=== PATIENT | male | born 1965 | race Caucasian/White ===

== ENCOUNTER 2018-05-29 12:46 | Emergency (ER) | payer OTHER ==
--- NOTE | 2018-05-29 13:29 | ED ---
Back Pain - HPI Summary HPI Summary: This pt is a 52 y/o male presenting to [facility] c/o back pain radiating down right leg for the past 2 weeks. Pt reports he has hx of sciatica and usually resolves after going to chiropractor and physical therapy. He states that around 05/10/18 pt was changing the brakes from his car when he "tweaked" his back. Pt has been to the chiropractor x3 and is doing physical therapy without relief. He was given medications including flexeril (last dose was 2 week ago) and hydrocodone without relief. Pt is currently on duloxetine now without much relief. Pt has difficulty ambulating and moving secondary to pain and has also missed work. Pt called Dr. Brownlee, from the pain clinic, and was advised to come to the ED for possible MRI. - History of Current Complaint Chief Complaint: EDBackInjuryPain Stated Complaint: BACK PAIN Time Seen by Provider: 05/29/18 13:04 Hx Obtained From: Patient Onset/Duration: Lasting Weeks - 2, Still Present Onset/Duration: Started Weeks Ago - 2, Still Present Timing: Lasting Weeks - 2 Back Pain Location: Is Discrete @ - low back, Radiates To - right foot Severity Currently: Severe Pain Intensity: 10 Pain Scale Used: 0-10 Numeric Aggravating Symptom(s): Movement Alleviating Symptom(s): Rest Associated Signs And Symptoms: Negative: Fever, Weakness, Numbness, Tingling, Abdominal Pain, Bladder Incontinence, Bowel Incontinence - Allergies/Home Medications Allergies/Adverse Reactions: Allergies Allergy/AdvReac Type Severity Reaction Status Date / Time No Known Allergies Allergy Verified 05/29/18 13:03 Home Medications: Home Medications Aspirin EC TAB* [Ecotrin EC Low Dose 81 MG*] 81 mg PO DAILY 05/29/18 [History Confirmed 05/29/18] Atorvastatin* [Lipitor*] 20 mg PO DAILY 05/29/18 [History Confirmed 05/29/18] Dulaglutide (NF) [Trulicity (NF)] 1.5 mg SUBCUT WEEKLY 05/29/18 [History Confirmed 05/29/18] Insulin GLARGINE(*) [Lantus(*)] 50 units SUBCUT QPM 05/29/18 [History Confirmed 05/29/18] Levothyroxine TAB* [Synthroid TAB*] 125 mcg PO DAILY 05/29/18 [History Confirmed 05/29/18] metFORMIN* [Glucophage 1000 MG TAB *] 1,000 mg PO BID 05/29/18 [History Confirmed 05/29/18] PMH/Surg Hx/FS Hx/Imm Hx Endocrine/Hematology History: Denies: Hx Diabetes Cardiovascular History: Denies: Hx Hypertension Musculoskeletal History: Reports: Other Musculoskeletal History - sciatica Infectious Disease History: No Infectious Disease History: Denies: Traveled Outside the [place] in Last 30 Days - Family History Known Family History: Negative: Diabetes - Social History Alcohol Use: Occasionally Substance Use Type: Reports: None Smoking Status (MU): Never Smoked Tobacco Review of Systems Negative: Fever, Chills Negative: Chest Pain Negative: Shortness Of Breath Negative: incontinence Musculoskeletal: Other - back pain Negative: Weakness, Paresthesia, Numbness All Other Systems Reviewed And Are Negative: Yes Physical Exam - Summary Physical Exam Summary: Appearance: The patient is well-nourished in no acute distress and in no acute pain. Skin: The skin is warm and dry and skin color reflects adequate perfusion. HEENT: The head is normocephalic and atraumatic. The pupils are equal and reactive. The conjunctivae are clear and without drainage. Nares are patent and without drainage. Mouth reveals moist mucous membranes and the throat is without erythema and exudate. The external ears are intact. The ear canals are patent and without drainage. The tympanic membranes are intact. Neck: the neck is supple with full range of motion and non-tender. There are no carotid bruits. There is no neck vein distension. Respiratory: Chest is non-tender. Lungs are clear to auscultation and breath sounds are symmetrical and equal. Cardiovascular: Heart is regular rate and rhythm. There is no murmur or rub auscultated. There is no peripheral edema and pulses are symmetrical and equal. Abdomen: The abdomen is soft and non-tender. There are normal bowel sounds heard in all four quadrants and there is no organomegaly palpated. Musculoskeletal: There is no back tenderness noted. Extremities with full range of motion. There is good capillary refill. There is no peripheral edema or calf tenderness elicited. Pt has mild nerve sciatic tenderness, reproducible at 80 degrees with extension of right leg. Neurological: Patient is alert and oriented to person, place and time. The patient has symmetrical motor strength in all four extremities. Cranial nerves are grossly intact. Deep tendon reflexes are symmetrical and equal in all four extremities. Psychiatric: The patient has an appropriate affect and does not exhibit any anxiety or depression. Triage Information Reviewed: Yes Vital Signs On Initial Exam: Initial Vitals Temp Pulse Resp BP Pulse Ox 97.5 F 98 17 140/76 99 05/29/18 12:51 05/29/18 12:51 05/29/18 12:51 05/29/18 12:51 05/29/18 12:51 Vital Signs Reviewed: Yes Diagnostics - Vital Signs Vital Signs Temp Pulse Resp BP Pulse Ox 05/29/18 12:51 97.5 F 98 17 140/76 99 - Laboratory Lab Statement: Any lab studies that have been ordered have been reviewed, and results considered in the medical decision making process. - CT Lumbar spine CT CT Interpretation: Positive (See Comments) - IMPRESSION: Degenerative disc disease of the lumbar spine most severe at L5/S1 where there are bilateral pars interarticularis defects causing grade 1 L[address]. Rosa has reviewed this report. CT Interpretation Completed By: Radiologist Re-Evaluation - Re-Evaluation First Eval Re-Evaluation Time: 15:10 Comment: I reviewed the CT results with the pt. Back Pain Course/Dx - Course Course Of Treatment: Mr. Harvey presented with a history of right leg sciatica. He aggravated a couple weeks ago lifting and twisting. He went to see his PCP who started him on [place] 01/18/25 and Flexeril. This wasn't helping and he got switched to diclofenac and physical therapy. He takes the [place] only did at bedtime. He denies urinary or fecal incontinence or weakness of his legs. His exam was relatively unremarkable. A CT of his lumbar spine shows a lot of degenerative disc disease especially at L5-S1 where there is spondylolisthesis. He likely does need an MRI scan as an outpatient. He did get some relief from Ativan as a muscle relaxer (he stopped taking the Flexeril because he didn' t think it was working) and I will start him on that in addition to the nonsteroidal and the opiate to help him sleep. - Diagnoses Provider Diagnoses: Sciatica Discharge - Sign-Out/Discharge Documenting (check all that apply): Patient Departure - Discharge - Discharge Plan Condition: Stable Disposition: HOME Prescriptions: Hydrocodone/Acetaminophen [[place] 7.5-325 Tablet] 1 each PO BEDTIME #10 tablet MDD 1 LORazepam TAB(*) [Ativan TAB(*)] 1 mg PO Q6H PRN #20 tab MDD 4 PRN Reason: Pain Patient Education Materials: Sciatica (ED) Referrals: [facility] [Outside] Additional Instructions: Please follow up with your primary care provider this week. RETURN TO THE ED FOR ANY WORSENING SYMPTOMS. - Billing Disposition and Condition Condition: STABLE Disposition: Home - Attestation Statements Document Initiated by Scribe: Yes Documenting Scribe: Tomeka Humphrey Provider For Whom Scribe is Documenting (Include Credential): Tera Rosa MD Scribe Attestation: Tomeka Russell scribed for Tera Rosa MD on 05/29/18 at 1606. Scribe Documentation Reviewed: Yes Provider Attestation: The documentation as recorded by the Tomeka cochran accurately reflects the service I personally performed and the decisions made by me, Tera Rosa MD
[2018-05-29] MEDS ORDERED: LORazepam TAB(*) 1 MG PO ONE (13:32)
[2018-05-29] MEDS ORDERED: Ketorolac INJ* 30 MG/ML 1 ML VIAL IM ONE (13:32)
--- NOTE | 2018-05-29 14:17 | RAD ---
INDICATION: Back pain. COMPARISON: There are no prior studies available for comparison. TECHNIQUE: Contiguous axial sections were obtained beginning lower thoracic vertebra and continuing through the sacrum. Images were reconstructed in the sagittal and coronal planes. FINDINGS: At L5/S1 there is bilateral pars interarticularis defects causing grade 1 anterolisthesis of L5 over S1. Otherwise the vertebral bodies and facet joints are appropriately aligned. There is a very mild degree of straightening of the normal lumbar lordosis. At L3/L4 there is a mild degree of broad-based intervertebral disc protrusion combining with facet arthropathy and thickening of the ligamentum flavum to cause a very mild degree of bilateral neural foraminal stenosis. At L5/S1 there is mild broad-based disc protrusion which appears to be exacerbated by the spondylolisthesis causing mild to moderate bilateral neural foraminal stenosis. Incidentally noted is calcified atherosclerosis at the infrarenal abdominal aorta extending into the bilateral iliac arteries. IMPRESSION: Degenerative disc disease of the lumbar spine most severe at L5/S1 where there are bilateral pars interarticularis defects causing grade 1 L5 over S1 anterolisthesis.
[2018-05-29 15:46] VITALS: BP 163/100
== END 2018-05-29 15:45 | disposition home or self-care (01) ==
LOC: ED 12:46
DX: M54.30 Sciatica, unspecified side (principal); M54.9 Dorsalgia, unspecified
CPT/HCPCS: 72131; 96372; 99282; A9270-GY; J1885